=== PATIENT | female | born 1970 | race Hispanic/Latino ===

== ENCOUNTER → 2025-07-05 | Emergency (ER) | payer MEDICAID ==
[~2025-07-05] VITALS: Ht 170.2 cm; Wt 74.8 kg
[~2025-07-05] MED LIST: NITR100C4 PO
[2025-07-05 18:52] VITALS: BP 163/97; PULSE 100; RESP 18; TEMP 98.3
--- NOTE | 2025-07-05 19:10 | ERN ---
ED Note History of Present Illness Stated Complaint: SENT BY [facility] FOR MISBEHAVING Chief Complaint: Psych Evaluation Time Seen by MD: 18:56 Time Seen by Midlevel: 19:00 Dictation: Ms. Varghese is a 54-year-old female with history of bipolar depression and schizophrenia who was transported via EMS to the emergency department this evening for evaluation of agitation. According to EMS, patient was at the [facility] and had a fight with staff. She urinated on herself because she was mad . The staff at [facility] called PD and when they opened the door to the facility she left and went to the [place] Officers called 911. She has been cooperative with EMS. She denies suicidal or homicidal behavior and states she does not want to be seen in the emergency room and she does not want psych screening. She wishes to leave . She declines physical examination. Charge nurse spoke patient who is alert and oriented x4. She signed paperwork AMA. Past Medical History Past Medical History: Bipolar, Schizophrenia Surgical History: Unknown PSYCH History: bipolar, schizophrenia RN Note Reviewed/Agreed w/PFSH: Yes Review of System Dictation Refuses to answer Initial Vital Sign VS Vital Signs Date Time Temp Pulse Resp B/P (MAP) Pulse Ox O2 Delivery O2 Flow Rate FiO2 07/05/25 18:52 98.2 100 18 163/97 96 Room Air 0 Physical Exam Dictation Refuses examination. ED Course ED Course Vital Signs Date Time Temp Pulse Resp B/P (MAP) Pulse Ox O2 Delivery O2 Flow Rate FiO2 07/05/25 18:52 98.2 100 18 163/97 96 Room Air 0 Patient refused examination. Denies intent to harm self or others. States she does not want psych screening/tropical [place]. She states she wants to leave. She is alert and oriented x4. AMA form signed Medical Decision Making MDM AMA DX & DISP Disposition: AMA Departure Condition: Stable JODEE JEFFERSON Jul 05, 2025 19:10
== END ==
LOC: EDH 18:43
DX: F31.9 Bipolar disorder, unspecified (principal); F20.9 Schizophrenia, unspecified
CPT/HCPCS: 99283

== ENCOUNTER 2025-07-06 09:17 | Emergency (ER) | payer MEDICAID ==
[~2025-07-06] VITALS: Ht 162.6 cm; Wt 74.8 kg
[2025-07-06 10:11] LABS: IMMATURE GRANULOCYTE ABSOLUTE 0.08 K/uL (0-1); NUCLEATED RED BLOOD CELLS 0.0 % (0.0-0.19); PLATELET COUNT (AUTO) 262 K/uL (130-400); RED BLOOD CELL COUNT(AUTO) 4.55 MIL/uL (4.00-5.50); RED CELL DISTRIBUTION WIDTH 12.7 % (11.0-15.5); WHITE BLOOD COUNT (AUTO) 15.9 K/uL (4.8-10.8)
[2025-07-06 10:20] LABS: CREATININE 0.6 mg/dL (0.5-1.0); GLOMERULAR FILTR. RATE CALC 107 mL/min (>90); GLUCOSE,RANDOM 188 mg/dL (70-105); SODIUM SERUM 136 mmol/L (136-145); UREA NITROGEN, BLOOD 12 mg/dL (7-18)
[2025-07-06 10:25] LABS: ALCOHOL, BLOOD < 3 mg/dL (0-10); CREATINE KINASE, TOTAL 172 U/L (21-232)
--- NOTE | 2025-07-06 11:02 | NUR ---
ANA-BERT ELIZABETH [phone]
--- NOTE | 2025-07-06 11:08 | ERN ---
General Chief Complaint: General Complaint Stated Complaint: ABNORMAL BEHAVIOR Time Seen by MD: 09:20 Source: patient History of Present Illness Initial Comments Patient is a 54-year-old female coming in presenting in altered mental status. Patient was seen before for same reason but left against medical advice. Patient in his coming in unkept in incoherent presentation. Allergies: Coded Allergies: No Known Drug Allergies (Unverified Allergy, Unknown, 07/06/25) Past Medical History Past Medical History: Schizophrenia, Unable to Obtain Past Surgical History: None ROS Dictation CONSTITUTIONAL: No chills, no fever, no weakness, no diaphoresis, no malaise. HEAD/FACE: No signs of trauma. EENT: No eye pain, no blurred vision, no tearing, no double vision, no ear pain, no ear discharge, no nose pain, no nasal congestion, no throat pain, no throat swelling, no mouth pain. RESPIRATORY: No cough, no orthopnea, no SOB, no stridor, no wheezing. CARDIOVASCULAR: No chest pain, no edema, no palpitations, no syncope. GASTROINTESTINAL/ABDOMINAL: No abdominal pain, no constipation, no diarrhea, no nausea, no vomiting. GENITOURINARY: No abnormal discharge, no dysuria, no frequent urination, no hematuria. No complaints of pain in the genitals. MUSCULOSKELETAL: No back pain, no gout, no joint pain, no joint swelling, no muscle pain, no muscle stiffness, no neck pain. INTEGUMENTARY: No change in color, no change in hair/nails, no dryness, no lesion, no lumps, no rash. NEUROLOGICAL/PSYCH: No anxiety, not depressed, no emotional problem, no headache, no numbness, no pre-existing deficit, no history of seizures, no tremors, no weakness. HEMATOLOGIC/LYMPHATIC: Not anemic, no history of blood clots, no apparent bleeding, no bruising, glands not swollen. All Systems Negative, Except as Noted. Physical Exam Physical Exam Dictation VITAL SIGNS: Reviewed. GENERAL APPEARANCE: Alert, oriented x3, no acute distress, obese. HEAD AND FACE: Non-traumatic. EYES: PERRL, pink conjunctivas, eyelid no trauma, anterior chamber clear. EARS: Pinnas intact and no signs of trauma or erythema. Ear canals clear and no discharge. TMs no erythema. NOSE: No discharge, no bleeding. OROPHARYNX: Mouth normal, teeth no caries, tongue pink. Pharynx clear, no erythema. Tonsils no exudates, no abscesses noted. Mucous membrane moist. NECK: Supple, non-tender, no thyromegaly, no masses, no JVD, no bruits. BREAST: Deferred. CHEST: No tenderness, no crepitus, no paradoxical movement, no retractions. LUNGS: Clear, well-ventilated, symmetric, no rales, no wheezing, no rhonchi, no stridor, good breath sounds bilaterally. HEART: Regular rate, regular rhythm, no murmur, no gallops. VASCULAR: No peripheral edema. ABDOMEN: Soft, positive bowel sounds, nondistended, no guarding, nontender, no rebound, no masses no hepatomegaly, no splenomegaly, no Rivera's sign, no hernias. RECTAL: Deferred. GENITAL: Deferred. NEUROLOGICAL: Normal speech, gross motor function intact, gross sensory function intact. MUSCULOSKELETAL: Neck nontender, full range of motion, back nontender, full range of motion. EXTREMITIES: Nontender, full range of motion. SKIN: Color pink, dry, no turgor, no rash, no lacerations, no abrasions, no contusions. LYMPHATICS: Deferred. Results Laboratory and Microbiology Lab and Micro Result Laboratory Tests Test 07/06/25 10:06 07/06/25 12:05 07/07/25 10:39 07/08/25 15:10 White Blood Count 15.9 K/uL (4.8-10.8) H 7.3 K/uL (4.8-10.8) 8.0 K/uL (4.8-10.8) Red Blood Count 4.55 MIL/uL (4.00-5.50) 4.62 MIL/uL (4.00-5.50) 4.46 MIL/uL (4.00-5.50) Hemoglobin 13.3 g/dL (12.0-16.0) 13.6 g/dL (12.0-16.0) 13.1 g/dL (12.0-16.0) Hematocrit 40.3 % (36-48) 40.4 % (36-48) 40.0 % (36-48) Mean Corpuscular Volume 88.6 fL (79-99) 87.4 fL (79-99) 89.7 fL (79-99) Mean Corpuscular Hemoglobin 29.2 pg (27.0-33.0) 29.4 pg (27.0-33.0) 29.4 pg (27.0-33.0) Mean Corpuscular Hemoglobin Concent 33.0 g/dL (32.0-36.0) 33.7 g/dL (32.0-36.0) 32.8 g/dL (32.0-36.0) Red Cell Distribution Width 12.7 % (11.0-15.5) 12.7 % (11.0-15.5) 12.6 % (11.0-15.5) Platelet Count 262 K/uL (130-400) 285 K/uL (130-400) 271 K/uL (130-400) Mean Platelet Volume 9.4 fL (7.5-10.5) 9.6 fL (7.5-10.5) 9.9 fL (7.5-10.5) Immature Granulocyte % (Auto) 0.5 % (0-1) 0.4 % (0-1) 0.6 % (0-1) Neutrophils (%) (Auto) 85.5 % (40.0-77.0) H 64.8 % (40.0-77.0) 60.8 % (40.0-77.0) Lymphocytes (%) (Auto) 6.7 % (21.0-51.0) L 22.4 % (21.0-51.0) 25.0 % (21.0-51.0) Monocytes (%) (Auto) 6.6 % (3.0-13.0) 9.0 % (3.0-13.0) 9.8 % (3.0-13.0) Eosinophils (%) (Auto) 0.3 % (0.0-8.0) 2.6 % (0.0-8.0) 2.9 % (0.0-8.0) Basophils (%) (Auto) 0.4 % (0.0-5.0) 0.8 % (0.0-5.0) 0.9 % (0.0-5.0) Neutrophils # (Auto) 13.6 K/uL (1.8-7.7) H 4.7 K/uL (1.8-7.7) 4.9 K/uL (1.8-7.7) Lymphocytes # (Auto) 1.1 K/uL (1.0-4.8) 1.6 K/uL (1.0-4.8) 2.0 K/uL (1.0-4.8) Monocytes # (Auto) 1.1 K/uL (0.1-1.0) H 0.7 K/uL (0.1-1.0) 0.8 K/uL (0.1-1.0) Eosinophils # (Auto) 0.04 K/uL (0.00-0.70) 0.19 K/uL (0.00-0.70) 0.23 K/uL (0.00-0.70) Basophils # (Auto) 0.07 K/uL (0.00-0.20) 0.06 K/uL (0.00-0.20) 0.07 K/uL (0.00-0.20) Absolute Immature Granulocyte (auto 0.08 K/uL (0-1) 0.03 K/uL (0-1) 0.05 K/uL (0-1) Nucleated Red Blood Cells 0.0 % (0.0-0.19) 0.0 % (0.0-0.19) 0.0 % (0.0-0.19) White Cell Morphology Comment See comments Sodium Level 136 mmol/L (136-145) 138 mmol/L (136-145) 139 mmol/L (136-145) Potassium Level 4.0 mmol/L (3.5-5.1) 4.2 mmol/L (3.5-5.1) 3.9 mmol/L (3.5-5.1) Chloride Level 100 mmol/L (101-111) L 103 mmol/L (101-111) 103 mmol/L (101-111) Carbon Dioxide Level 25 mmol/L (21-32) 26 mmol/L (21-32) 27 mmol/L (21-32) Blood Urea Nitrogen 12 mg/dL (7-18) 11 mg/dL (7-18) 17 mg/dL (7-18) Creatinine 0.6 mg/dL (0.5-1.0) 0.6 mg/dL (0.5-1.0) 0.8 mg/dL (0.5-1.0) Glomerular Filtration Rate Calc 107 mL/min (>90) 107 mL/min (>90) 88 mL/min (>90) Random Glucose 188 mg/dL (70-105) H 147 mg/dL (70-105) H 157 mg/dL (70-105) H Total Calcium 8.7 mg/dL (8.5-10.1) 8.7 mg/dL (8.5-10.1) 8.9 mg/dL (8.5-10.1) Total Creatine Kinase 172 U/L (21-232) Salicylates Level 8.9 mg/dL (2.8-20.0) Acetaminophen Level < 1 mcg/mL (10-30) L Serum Alcohol < 3 mg/dL (0-10) Urine Color LIGHT-YELLOW (YELLOW) Urine Appearance CLEAR (CLEAR) Urine pH 7.0 (5.0-8.0) Urine Specific Paulina 1.011 (1.001-1.031) Urine Protein NEGATIVE mg/dL (NEGATIVE) Urine Glucose (UA) NEGATIVE mg/dL (NEGATIVE) Urine Ketones NEGATIVE mg/dL (NEGATIVE) Urine Occult Blood LARGE (NEGATIVE) H Urine Nitrate NEGATIVE (NEGATIVE) Urine Bilirubin NEGATIVE mg/dL (NEGATIVE) Urine Urobilinogen 0.2 mg/dL (0.2-1.0) Urine Leukocyte Esterase 25 Domitila/uL (NEGATIVE) H Urine RBC 6-10 /HPF (0-1) H Urine WBC 11-25 /HPF (0-1) H Urine Squamous Epithelial Cells RARE /HPF (0-2) Urine Bacteria RARE /HPF (None Seen) Urine Opiates Screen NEGATIVE (NEGATIVE) Urine Barbiturates Screen NEGATIVE (NEGATIVE) Urine Phencyclidine Screen NEGATIVE (NEGATIVE) Urine Amphetamines Screen NEGATIVE (NEGATIVE) Urine Benzodiazepines Screen NEGATIVE (NEGATIVE) Urine Cocaine Screen NEGATIVE (NEGATIVE) Urine Marijuana (THC) Screen NEGATIVE (NEGATIVE) Test 07/08/25 15:23 Urine Color YELLOW (YELLOW) Urine Appearance CLOUDY (CLEAR) H Urine pH 6.5 (5.0-8.0) Urine Specific Paulina 1.024 (1.001-1.031) Urine Protein NEGATIVE mg/dL (NEGATIVE) Urine Glucose (UA) NEGATIVE mg/dL (NEGATIVE) Urine Ketones NEGATIVE mg/dL (NEGATIVE) Urine Occult Blood NEGATIVE (NEGATIVE) Urine Nitrate NEGATIVE (NEGATIVE) Urine Bilirubin NEGATIVE mg/dL (NEGATIVE) Urine Urobilinogen 0.2 mg/dL (0.2-1.0) Urine Leukocyte Esterase 25 Domitila/uL (NEGATIVE) H Urine RBC 2-5 /HPF (0-1) H Urine WBC 11-25 /HPF (0-1) H Urine Squamous Epithelial Cells MANY /HPF (0-2) Urine Bacteria RARE /HPF (None Seen) Labs Reviewed?: Yes MDM MDM: Differential diagnosis: Rationale: Tests considered and ordered secondary to shared decision making include: Previous outside records reviewed: Old ER visits. Risk of complication and/or morbidity or mortality of patient management: None Medications-Per medication reconciliation Need for hospitalization: Patient does not meet criteria for hospitalization. Need for emergency major/minor surgery: No There are no social concerns with this patient. Prescription drug management Prescriptions will include symptomatic care Patient's prior external medical records from other ER visits were reviewed by me as indicated. Prior testing and results from previous visits were reviewed. Prior tests were taken into account with medical decision making and resource utilization, independent historian/historians were used to obtain complete m edical history. I independently interpreted the test that were performed, results were reviewed by me and considered findings on radiology if ordered. Medical management and examination interpretation discussions were had by me with other qualified healthcare professionals as indicated for the patient's care. Patient handed off at shift change has been here multiple days screen and does not meet inpatient psych admission, patient was held is unable to find family members sister's now at bedside and ready to take patient home ED Course Orders Procedure Category Date Status Time Cbc With Differential LAB 07/06/25 Complete 09:55 Alcohol, Blood LAB 07/06/25 Complete 09:55 Salicylate LAB 07/06/25 Complete 09:55 Acetaminophen LAB 07/06/25 Complete 09:55 Urinalysis Profile LAB 07/06/25 Complete 09:55 Creatine Kinase, Total LAB 07/06/25 Complete 09:55 Basic Metabolic Panel LAB 07/06/25 Complete 09:55 Drug Screen Urine LAB 07/06/25 Complete 09:55 One To One Sitter CPOE 07/06/25 Transmitted 11:58 Culture Urine ASHER 07/06/25 Complete 13:00 Ceftriaxone 1g Vial PHA 07/06/25 Complete (Rocephine 1g Inj) 13:30 Ziprasidone Mesylate PHA 07/06/25 Complete (Geodon) 16:00 Heart Healthy Diet DIET 07/07/25 Complete Lunch Cbc With Differential LAB 07/07/25 Complete 10:30 Basic Metabolic Panel LAB 07/07/25 Complete 10:30 Consistent Carb DIET 07/07/25 Transmitted Dinner Basic Metabolic Panel LAB 07/08/25 Complete 15:01 Cbc With Differential LAB 07/08/25 Complete 15:01 Urinalysis Profile LAB 07/08/25 Complete 15:01 Levofloxacin 500 PHA 07/08/25 Complete Mg/D5w 100 Ml 16:18 Current Medications Medications (Trade) Dose Ordered Sig/Genesis Route PRN Reason Start Time Stop Time Status Last Admin Dose Admin Levofloxacin/ Dextrose 100 ml @ 100 mls/hr Q24H STAT IV 07/08/25 16:18 07/08/25 17:17 DC 07/08/25 16:57 Vital Signs Date Time Temp Pulse Resp B/P (MAP) Pulse Ox O2 Delivery O2 Flow Rate FiO2 07/09/25 05:59 72 16 121/71 97 Room Air* 0 07/09/25 00:15 98.6 64 18 130/78 98 Room Air* 0 07/08/25 20:13 98.2 64 18 123/76 98 Room Air* 0 07/08/25 12:33 98.1 73 17 122/77 96 Room Air* 0 07/08/25 08:15 98.1 73 17 109/64 96 Room Air* 0 07/08/25 04:45 79 18 115/79 98 Room Air* 0 07/08/25 02:52 20 18 115/79 98 Room Air* 0 07/08/25 00:49 80 18 104/58 98 Room Air* 0 07/07/25 23:10 78 18 124/78 98 Room Air* 0 07/07/25 21:47 76 18 130/79 98 Room Air* 0 07/07/25 11:00 98.2 78 18 129/80 96 Room Air* 0 07/07/25 08:00 98.2 81 18 119/84 94 Room Air* 0 07/07/25 06:23 98.2 97 16 135/79 97 Room Air* 0 07/07/25 01:57 82 16 121/73 96 Room Air* 0 07/06/25 19:36 99.0 84 18 141/86 98 Room Air* 0 07/06/25 16:00 97.5 85 18 137/95 95 Room Air* 0 07/06/25 12:23 97.5 92 18 160/97 96 Room Air* 0 07/06/25 09:19 98.4 110 16 129/88 95 Room Air DX & DISP Disposition: Discharge Departure Impression: Primary Impression: UTI (urinary tract infection) Additional Impression: Depression Condition: Stable Scripts Nitrofurantoin Monohyd/M-Cryst (Macrobid 100 mg Capsule) 100 Mg Capsule 1 CAP PO BID for 7 Days, #14 CAP 0 Refills Prov: ROGER WALKER MD 07/09/25 Referrals: SELF,REFERRAL (PCP) JEFF MCCLELLAND MD Jul 06, 2025 11:08 ROGER WALKER MD Jul 09, 2025 16:50
--- NOTE | 2025-07-06 11:43 | NUR ---
SISTER,PAYAL ZAMUDIO AT BEDSIDE. PHONE# [phone]
--- NOTE | 2025-07-06 11:56 | NUR ---
SPOKE TO VENTURA WITH [employer], SHE NOTIFY BIOSTATISTICS DIRECTORDEDENTER TO COME SCREEN PT.
[2025-07-06 12:19] LABS: APPEARANCE,URINE CLEAR (CLEAR); GLUCOSE, URINE (UA) NEGATIVE (NEGATIVE); LEUKOCYTE ESTERASE ,URINE 25 Leu/uL (NEGATIVE); NITRATE,URINE NEGATIVE (NEGATIVE); OCCULT BLOOD,URINE LARGE (NEGATIVE)
[2025-07-06 12:27] LABS: AMPHET/METH SCREEN,URINE NEGATIVE (NEGATIVE); BARBITURATE SCREEN, URINE NEGATIVE (NEGATIVE); CANNABINOID SCREEN,URINE NEGATIVE (NEGATIVE); COCAINE SCREEN,URINE NEGATIVE (NEGATIVE)
[2025-07-06 12:37] LABS: ADD UA MICROSCOPIC YES
--- NOTE | 2025-07-06 12:50 | NUR ---
[facility]OPICAL SCREENER AT BEDSIDE WITH PT.
[2025-07-06 12:58] LABS: SQUAMOUS EPITHELIAL CELL,UR RARE /HPF (0-2)
--- NOTE | 2025-07-06 15:52 | NUR ---
PT IS RESTING IN BED. EYES CLOSED,EVEN UNLABORED BREATHING.
[2025-07-06] MEDS: ZIPRASIDONE MESYLATE 20 MG/VIAL IM ONE (16:00)
--- NOTE | 2025-07-06 17:14 | NUR ---
PT'S SISTER CALLED TO ENQUIRE ABOUT PT. INFORMED HER THAT PT IS RESTING IN BED WITH STABLE VITAL SIGNS. SHE REQUESTS "SEDATION" FOR HER STATING "I KNOW SHE LOOKS CALM,BUT SHE IS SUFFERING ON THE INSISDE". INFORMED HER THAT WHEN SHE IS AWAKE WE CAN ADDRESS HER BEHAVIOR PT NEEDS REQUIRE IT.
--- NOTE | 2025-07-06 18:00 | NUR ---
GEODON NOT GIVEN PT IS SETTLED IN BED,NO ANXIETY.
--- NOTE | 2025-07-07 07:47 | NUR ---
CALL MADE TO [facility] TO REQUEST RESCREENING OF PT
[2025-07-07 10:43] LABS: IMMATURE GRANULOCYTE ABSOLUTE 0.03 K/uL (0-1); NUCLEATED RED BLOOD CELLS 0.0 % (0.0-0.19); PLATELET COUNT (AUTO) 285 K/uL (130-400); RED BLOOD CELL COUNT(AUTO) 4.62 MIL/uL (4.00-5.50); RED CELL DISTRIBUTION WIDTH 12.7 % (11.0-15.5); WHITE BLOOD COUNT (AUTO) 7.3 K/uL (4.8-10.8)
[2025-07-07 10:49] LABS: CREATININE 0.6 mg/dL (0.5-1.0); GLOMERULAR FILTR. RATE CALC 107.0 mL/min (>90); GLUCOSE,RANDOM 147.0 mg/dL (70-105); SODIUM SERUM 138.0 mmol/L (136-145); UREA NITROGEN, BLOOD 11.0 mg/dL (7-18)
--- NOTE | 2025-07-07 21:47 | NUR ---
AARON MENDOZA, 1:1 SITTER AT BEDSIDE.
--- NOTE | 2025-07-07 23:38 | NUR ---
PATIENT QUIET, RESTING, EYE CLOSED, NO RESPIRTORY DISTRESS, 1:1 SITTER AT BEDSIDE, MOST OF WELDING PROCESS SPECIALIST SO FAR PATIENT SLEEPING, ONLY WOKE UP TO EAT THEN BACK TO SLEEP.
--- NOTE | 2025-07-08 07:28 | NUR ---
assumed patient care at this time
--- NOTE | 2025-07-08 11:23 | NUR ---
CALLED AND SPOKE TO PAYAL, PATIENTS SISTER, STATED SHE CANNOT COME RIGHT NOW DUE TO TO HER BEING SICK AND BEING AT THE DRS OFFICE, I LET HER KNOW PATIENT IS OKAY AND WILL KEEP HE UPDATED IF ANYTHING CHANGES, PATIENT RESTING IN BED, CALL LIGHT IN REACH
[2025-07-08 15:18] LABS: IMMATURE GRANULOCYTE ABSOLUTE 0.05 K/uL (0-1); NUCLEATED RED BLOOD CELLS 0.0 % (0.0-0.19); PLATELET COUNT (AUTO) 271 K/uL (130-400); RED BLOOD CELL COUNT(AUTO) 4.46 MIL/uL (4.00-5.50); RED CELL DISTRIBUTION WIDTH 12.6 % (11.0-15.5); WHITE BLOOD COUNT (AUTO) 8.0 K/uL (4.8-10.8)
[2025-07-08 15:24] LABS: CREATININE 0.8 mg/dL (0.5-1.0); GLOMERULAR FILTR. RATE CALC 88.0 mL/min (>90); GLUCOSE,RANDOM 157.0 mg/dL (70-105); SODIUM SERUM 139.0 mmol/L (136-145); UREA NITROGEN, BLOOD 17.0 mg/dL (7-18)
[2025-07-08 15:32] LABS: APPEARANCE,URINE CLOUDY (CLEAR); GLUCOSE, URINE (UA) NEGATIVE (NEGATIVE); LEUKOCYTE ESTERASE ,URINE 25 Leu/uL (NEGATIVE); NITRATE,URINE NEGATIVE (NEGATIVE); OCCULT BLOOD,URINE NEGATIVE (NEGATIVE)
[2025-07-08 15:33] LABS: ADD UA MICROSCOPIC YES
[2025-07-08 15:42] LABS: SQUAMOUS EPITHELIAL CELL,UR MANY /HPF (0-2)
--- NOTE | 2025-07-08 16:05 | NUR ---
[facility] SCREENING: I SPOKE TO YONY ABOUT THE NEED FOR THE PT TO HAVE A [facility] SCREENING
--- NOTE | 2025-07-08 16:10 | NUR ---
TROPICAL SCREENER NOTE: RG JUST CALLED AND WE DISCUSSED THE PTS CASE AGAIN. WE HAVE COME UP W/A PLAN OF CARE. PER SONAL RN PRIMARY RN, PT STILL DENIES ANY SI/SA HI/MOONEY AT THIS TIME.WE ALSO DISCUSSED WHICH FACILITIES/FAMILY HAVE REFUSED TO TAKE THE PT BACK IN.
--- NOTE | 2025-07-08 16:25 | NUR ---
SPOKE TO PATIENT AT BEDSIDE ALONG WITH VALERY ZAMUDIO RN, AND MERNA MARQUEZ ABOUT SHARING INFORMATION TO HER SISTER PAYAL OVER PHONE ON PATIENTS STATUS WHICH PATIENT SAID IT WAS OKAY TO SHARE, I SPOKE TO PAYAL, PATIENTS SISTER, ABOUT PLAN FOR PATIENT TO BE SCREENED AGAIN BY [facility] AND IF SHE DOESNT MEET CRITERIA, SHE WOULD NEED TO COME UNDERCOVER AGENT PATIENT HERSELF, SHE THEN STATES THAT SHE IS FEELING REALLY SICK AND UNABLE TO PICK HER UP TODAY IF SHE GETS DISCHARGED AND REQUESTED IF SHE CAN PICK HER UP TOMORROW, SHE THEN PASSED ME HER MOTHERS NUMBER OF [phone] INCASE SHE DOESNT ANSWER HER PHONE, PATIENT RESTING IN BED, CALL LIGHT IN REACH
--- NOTE | 2025-07-08 18:13 | NUR ---
TROPICAL SCREENER: RG IS CURRENTLY AT BEDSIDE SPEAKING W/PT.
--- NOTE | 2025-07-09 07:17 | NUR ---
ASSUMED PATIENT CARE AT THIS TIME
--- NOTE | 2025-07-09 14:20 | NUR ---
I CALLED PAYAL BETANCUR PHONE AND SHE DID NOT ANSWER, I CALLED SECONDARY LINE AND HER SON ANSWERED STATING THEY ARE UNABLE TO GET A HOLD OF HER EITHER AND WILL LET ME KNOW AND CALL ME BACK WHEN HE DOES, PATIENT RESTING IN BED, CALL LIGHT IN REACH
--- NOTE | 2025-07-09 14:40 | NUR ---
SPOKE WITH FAMILY ALICIA ZAMUDIO AND SHE STATES SHE WILL BE COMING FOR PT. SHE GAVE AN ETA OF APPROX 20.
--- NOTE | 2025-07-09 15:51 | NUR ---
SPOKE WITH FAMILY MEMBER MRS ZAMUDIO AND SHE STATES SHE IS ALREADY ON HER WAY.
[2025-07-09] MEDS ORDERED: NITR100C4 PO (16:50)
[2025-07-09 17:04] VITALS: BP 137/86; PULSE 75; RESP 16; TEMP 97.8; O2SAT 96
--- NOTE | 2025-07-09 17:13 | NUR ---
DC PATIENT WAS DC'D BY DR WALKER, I DC'D PATIENTS IV WITH CATH STILL INTACT AND APPLIED 2X2 GAUZE WITH COBAN I EXPLAINED TO PATIENT AND SISTER PAYAL AT BEDSIDE TO FOLLOW UP WITH PCP, PROVIDED INFO BASED ON DIAGNOSIS, PRESCRIPTIONS AND ANSWERED ANY FOLLOW UP QUESTIONS, PATIENT AMBULATED OUT OF ED ACCOMPANIED BY SISTER
== END 2025-07-09 16:50 | disposition home or self-care (01) ==
LOC: EDH 09:17
DX: N39.0 Urinary tract infection, site not specified (principal); F32.A Depression, unspecified; R41.82 Altered mental status, unspecified
CPT/HCPCS: 99285; 96375; 82550; 80305; 85025 ×3; 87086 ×2; 87186; 81001 ×2; 96365; 80048 ×3; 36415 ×3; G0481; J0696; J1956; 96374; 99284